=== PATIENT | female | born 1945 | race Caucasian/White ===

== ENCOUNTER → 2016-08-07 | Outpatient (CLI) | payer OTHER ==
[~2016-08-07] MED LIST: ALLOPURINOL100 MG PO; AMLODIPINE BESY10 M1 PO; AMLODIPINE BESY10 MG PO; APR50 PO; ASPIR LOW81 MG PO; CALCITRIOL0.25 MCG; CALCITRIOL0.25 MCG PO; CARVEDILOL12.5 M1 PO; CARVEDILOL6.25 M1 PO; CLINDAMYCIN HC300 MG; CLINDAMYCIN HC300 MG PO; CLOPIDOGREL75 M1 PO; CORE25 PO; ECO81 PO; ECOTRIN81 M1 PO; FAMILY PHARMAC325 MG PO; FAMOTIDINE40 MG; FERROUS SULFAT PO; FERROUS SULFAT325 M2 PO; GOOD SENSE ASPI81 M3 PO; INSULIN SQ; L40 PO; LAC PO; LEVAQUIN750 MG PO; LEVEMIR FLEX100 U/ML SQ; LEVEMIR SQ; LEVEMIR100 U/M1 SQ; LEVEMIR100 U/ML SQ; LOT5 PO; LOTENSIN10 MG PO; MUPIROCIN2% TOP; NIACIN PO; NIASPAN ER; NOR10 PO; NOVI; NOVI SQ; PLA75 PO; PRA40 PO; PRI20 PO; PROZ20 PO; SIMVASTATIN; VITAMIN C500 MG PO; VITC PO; ZOC20 PO; ZOS3PM IV; [UNRECOGNIZED DRUG - OTHER] PO
== END ==
LOC: OR 12:35
DX: T82.590A Other mechanical complication of surgically created arteriovenous fistula, initial encounter (principal)

== ENCOUNTER 2016-11-03 20:11 | Inpatient (IN) | payer OTHER ==
[~2016-11-03] VITALS: Ht 152.4 cm; Wt 78.9 kg
[2016-11-03 22:04] LABS: PLATELET COUNT 79 x10^3mcL (130-400)
--- NOTE | 2016-11-03 22:08 | NUR ---
PT IS A 71 YEAR OLD FEMALE, PRESENTS TO ED WITH C/O GENERALIZED WEAKNESS THAT STARTED TODAY. PT REPORTS THAT SHE DOESNT HAVE ENOUGH STRENGH IN LOWER EXTREMITIES TO TRANFER SELF FROM WHEELCHAIR TO COMMODE. 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 PT HAS MULTIPLE ECCHYMOSIS TO ARMS BILATERALLY AND TO CHEST AND ABDOMEN. PT DENIES ANY SHORTNESS OF BREATH OR PAIN. PT BREAHTING IS EVEN AND UNLABORED, NO S/S OF RESPRAITORY DISTRESS. SPEECH IS CLEAR AND APPROPRIATE. PT A/IO X4. PT HAS ELVIA CATH ON RIGHT CHEST AREA. PT HAS SHUNT ON RIGHT BICEP. PT REPORTS GETS DIALYSIS , , AND STAT. 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 PT DENIES ANY N/V/D/C. MSE EPRFORMED BY DR. HOWARD.
--- NOTE | 2016-11-03 22:23 | NUR ---
REMOVED PTS PROSTHETIC ATTATCHMENT BIALTERALY. ERYTHEMA NOTED TO DISTAL ENDS OF BOTH LEGS BILATERALLY, SKIN IS WARM TO TOUCH. NO OOPEN WOUNDS.
[2016-11-03 22:28] LABS: ALKALINE PHOSPHATASE 264 U/L (46-116); ALT/SGPT 22 U/L (14-59); AST/SGOT 44 U/L (15-37); BILIRUBIN TOTAL 1.64 mg/dL (0.20-1.00); CALCIUM 9.1 mg/dL (8.5-10.1); CARBON DIOXIDE 24.5 mmol/L (21-32); CHLORIDE SERUM 96 mmol/L (98-107); GLUCOSE SERUM 229 mg/dL (74-106); POTASSIUM SERUM 5.2 mmol/L (3.5-5.1); SODIUM SERUM 136 mmol/L (136-145)
[2016-11-03 22:33] LABS: ALBUMIN 2.4 g/dL (3.4-5.0); TOTAL PROTEIN, SERUM 8.4 g/dL (6.4-8.2)
[2016-11-03 22:34] LABS: CREATININE SERUM 5.7 mg/dL (0.6-1.0)
[2016-11-03 22:38] LABS: CK-MB 0.8 ng/mL (0-3.6)
--- NOTE | 2016-11-03 22:53 | NUR ---
PT STRAIGHT CATHED FOR URINE SAMPLE.
[2016-11-03 23:23] LABS: microscopic required? YES; urine erythrocyte 3+ (NEGATIVE)
--- NOTE | 2016-11-04 01:03 | NUR ---
REPORT GIVEN TO MATI SORENSEN TO ASSUME CARE OF PT
--- NOTE | 2016-11-04 01:15 | NUR ---
RECEIVED PT FROM ED VIA SHARMILA, CAME IN DUE TO SOB AND GENERALIZED WEAKNESS. AAOX4. DENIES HEADACHE/DIZZINESS. W/ VERY POOR VISION. DENIES CHEST PAIN/PRESSURE, SB W/ DEPRESSED T WAVE AND BBB. NO SOB NOTED, LUNG SOUNDS DIMINISHED, ON 2LPM/NC. DENIES ABDOMINAL DISCOMFORT. W/ SCATTERED DARK DISCOLORATION, SCRATCHES AND DRY SCABS ON BUE, BLE, BACK, CHEST AND BUTTOCKS. W/ HX OF BKA, PROSTHESIS AT BEDSIDE. SIDE RAILS UPX2. CALL LIGHT ON REACH. PRIMARY NURSE CRYSTAL TO TAKE PICTURES ON THE SKIN. ENDORSED
--- NOTE | 2016-11-04 01:30 | NUR ---
RECEIVED PT FROM ADMITTING NURSE FRANCHESCA SANFORD. PT IS RESTING IN BED AT THIS TIME WITH NO DISTRESS NOTED. RESPIRATIONS EVEN AND UNLABORED. NC @ 2LITERS IN PLACE. PT IS ALERT AND ORIENTED. NO PAIN NOTED.IV TO THE LAC PATENT. NO INFILTRATION NOTED. NS @ 10CC/HR STARTED. AV SHUNT TO THE RUE. TEMP HD CATH IN THE RIGHT CHEST, PT STATES IS NOT BEING USED. SEE BOTTOM CAGER ASSESSMENT FOR FURTHER DETAILS. WILL CONTINUE TO MONITOR PT.
[2016-11-04 01:43] VITALS: BP 108/28
[2016-11-04 02:04] LABS: CHOLESTEROL/HDL RATIO 4.1
[2016-11-04 02:09] LABS: T3 TOTAL 0.66 ng/mL
[2016-11-04 02:14] LABS: FREE T4 0.9 ng/dL (0.76-1.46); FREE THYROXINE INDEX 1.6 ug/dL (1.4-4.5); T4(THYROXINE) 4.7 ug/dL (4.7-13.3)
--- NOTE | 2016-11-04 03:30 | NUR ---
PT SLEEPING AT THIS TIME WITH NO DISTRESS NOTED. RESPIRATIONS EVEN AND UNLABORED. CALL LIGHT IN REACH. WILL MONITOR.
--- NOTE | 2016-11-04 05:16 | NUR ---
PT SLEEPING AT THIS TIME WITH NO DISTRESS NOTED. RESPIRATIONS EVEN AND UNLABORED. IV INFUSING WELL AT TKO. NO INFILTRATION NOTED. PT STABLE AT THIS TIME, WILL ENDORSE TO THE A.M SHIFT NURSE.
[2016-11-04 06:04] VITALS: BP 110/29
[2016-11-04 06:14] LABS: BASOPHIL % 0.3 % (0-2)
[2016-11-04 06:32] LABS: CHLORIDE SERUM 98 mmol/L (98-107); GLUCOSE SERUM 239 mg/dL (74-106); MAGNESIUM 2.8 mg/dL (1.8-2.4); PHOSPHOROUS 7.6 mg/dL (2.5-4.9); POTASSIUM SERUM 5.1 mmol/L (3.5-5.1); SODIUM SERUM 137 mmol/L (136-145)
--- NOTE | 2016-11-04 06:43 | NUR ---
CRITICAL LAB OF BUN 69 AND CREATINE 6. PT IS HD PATIENT AND PATIENT DUE FOR HD TODAY. WILL ENDORSE TO THE A.M SHIFT NURSE.
[2016-11-04 06:57] LABS: PLATELET COUNT 76 x10^3mcL (130-400); RED CELL DISTRIBUTION WIDTH 16.6 % (11.5-14.5)
--- NOTE | 2016-11-04 07:50 | NUR ---
PT RECEIVED DURING CHANGE OF SHIFT, A/OX4, POOR VISION IN BOTH EYES, TELE 35, SB WITH DEPRESSED T-WAVE AND BBB, DENIES CHEST PAIN, PULSES PRESENT BUE, LUNGS DIM ON RA, DENIES SOB, BREATHING EVEN AND UNLABORED, BOWEL SOUNDS ACTIVE, DENIES N/V/D, PT HAS TUNNELED CATH TO RT UPPER CHEST DRESSING CDI, AV SHUNT TO RUE BRUIT AND THRILL PRESENT, PT STATES CATH TO BE REMOVED SOON WITH WORKING AV SHUNT, RECEIVES HD TX TTHS, GENERALIZED WEAKNESS, BLE PROSTHETICS, ECCHYMOSIS BUE, ULCER TO CHEST AND BUTTOCKS, REDNESS BLE, DENIES PAIN AT THIS TIME, IV TO LAC SALINE LOCKED, IV WNL, CALM AND COOPERATIVE, CALL LIGHT WITHIN REACH, WILL CONTINUE TO MONITOR.
--- NOTE | 2016-11-04 08:55 | NUR ---
PT DENIES SOB ON RA, DENIES PAIN, PETAL SHAPER HAND AT BEDSIDE TAKING VITALS, CALL LIGHT WITHIN REACH, WILL CONTINUE TO MONITOR.
--- NOTE | 2016-11-04 09:08 | NUR ---
DR. DUNCAN AND RESIDENTS MAKING ROUNDS, PLAN OF CARE DISCUSSED.
[2016-11-04 10:01] VITALS: BP 93/33
--- NOTE | 2016-11-04 10:06 | NUR ---
PT DENIES SOB, DENIES PAIN, FINISHED 100% OF BREAKFAST, DENIES N/V AFTER EATING, CALL LIGHT WITHIN REACH, WILL CONTINUE TO MONITOR.
--- NOTE | 2016-11-04 10:07 | NUR ---
PT ASLEEP, NO INDICATION OF PAIN, BREATHING EVEN AND UNLABORED, CALL LIGHT WITHIN REACH, WILL CONTINUE TO MONITOR.
--- NOTE | 2016-11-04 10:28 | NUR ---
DIALYSIS NURSE ESTER MADE AWARE OF NEED FOR HD TX TODAY FOR THIS PT.
--- NOTE | 2016-11-04 11:07 | NUR ---
PT DENIES SOB, DENIES PAIN, BS 117 NO COVERAGE NEEDED, CALL LIGHT WITHIN REACH, WILL CONTINUE TO MONITOR.
--- NOTE | 2016-11-04 12:18 | NUR ---
PT ASLEEP, NO INDICATION OF PAIN, BREATHING EVEN AND UNLABORED, CALL LIGHT WITHIN REACH, WILL CONTINUE TO MONITOR.
--- NOTE | 2016-11-04 12:34 | NUR ---
PT REFUSED BREAKFAST THIS MORNING AND CURRENTLY REFUSING LUNCH, PT REQUESTED CEREAL, FNS NOTIFIED.
--- NOTE | 2016-11-04 13:11 | NUR ---
PT RECEIVING HD TX, NANCY SORENSEN AT BEDSIDE FOR HD TX, CALL LIGHT WITHIN REACH, WILL CONTINUE TO MONITOR.
[2016-11-04 13:18] VITALS: BP 93/29
--- NOTE | 2016-11-04 14:10 | NUR ---
PT ASLEEP, NO INDICATION OF PAIN, BREATHING EVEN AND UNLABORED, NANCY RN AT BEDSIDE DURING HD TX, CALL LIGHT WITHIN REACH, WILL CONTINUE TO MONITOR.
--- NOTE | 2016-11-04 15:18 | NUR ---
PT RECEIVING HD TX, DENIES SOB, C/O PAIN IN HIP/BUTTOCKS, PAIN MEDICATION OFFERED, PT REFUSED STATING "DIALYSIS WILL BE OVER IN 30 MINUTES, I'LL BE ABLE TO CHANGE POSITIONS, SO I'LL BE FINE."
--- NOTE | 2016-11-04 15:52 | NUR ---
HD TX FINISHED, 2L OUT.
--- NOTE | 2016-11-04 17:05 | NUR ---
PT DENIES SOB, DENIES PAIN, MEDS GIVEN, CALL LIGHT WITHIN REACH, WILL CONTINUE TO MONITOR.
[2016-11-04 17:21] VITALS: BP 106/33
--- NOTE | 2016-11-04 18:23 | NUR ---
PT ASLEEP, NO INDICATION OF PAIN, BREATHING EVEN AND UNLABORED, DAUGHTERS AT BEDSIDE, DAUGHTERS CONCERNED ABOUT PT RETURNING HOME WITH NO PERSON AVAILABLE TO TAKE CARE OF HER.
--- NOTE | 2016-11-04 19:57 | NUR ---
PT'S DAUGHTER STATED PT'S PACEMAKER SEEMS TO BE MANUFACTURED BY [employer].
[2016-11-04 21:52] VITALS: BP 102/39
--- NOTE | 2016-11-04 22:25 | NUR ---
LATE ENTRY: 2000H - EYES CLOSED, EASILY AWAKENED, ORIENTED X 4. SPEECH CLEAR AND APPROPRIATE. HOB ELEVATED 30 DEG. CALL LIGHT WITHIN EASY REACH. DAUGHTER IN ROOM. SALINE LOCK TO LEFT ARM. DRESSING OVER ELVIA CATH TO RIGHT CHEST AND DRESSING TO RIGHT UPPER ARM OVER DIALYSIS ACCESS SHUNT CDI. ABLE TO REPOSITION SELF.
[2016-11-05] VITALS (12 sets, daily range): BP systolic 83–110; BP diastolic 20–39; Ht 152.4 cm; Wt 78.9 kg
--- NOTE | 2016-11-05 00:25 | NUR ---
ATTEMPTED INTERROGATIONO OF AICD USING [employer] REMOTE INTERROGATOR. UNSUCCESSFUL. CALLING [employer] NURSE INSTRUCTOR.
--- NOTE | 2016-11-05 00:49 | NUR ---
CALLED [employer], [employer], [facility] AND [facility]. NONE STATED PT ON THEIR LIST. ATTEMPTED TO CALL [facility], NO ONE ANSWERED, CLOSED. PER DAUGHTER EARLIER, PHYSICIAN WHO PLACED AICD IS A DR. SHAY, TELEPHONE [phone]
--- NOTE | 2016-11-05 01:00 | NUR ---
EYES CLOSED, BREATHING EVEN AND UNLABORED ON ROOM. HOB KEPT ELEVATED 40 DEG. CALL LIGHT WITHIN EASY REACH. NPO.
--- NOTE | 2016-11-05 03:04 | NUR ---
Repositioned and elevated the head of the bed. Pt tolerated well.
--- NOTE | 2016-11-05 04:43 | NUR ---
Eyes close and resting comfortably. Call light within reach. Will continue to monitor.
--- NOTE | 2016-11-05 05:01 | NUR ---
BP 98/29, WA 63. ASYMPTOMATIC. INFORMED DR. SANDY VIA [facility].
--- NOTE | 2016-11-05 05:03 | NUR ---
PLACED ON AIR MATTRESS. TURNED AND REPOSITIONED. HIBICLENS BATH ADMINISTERED. LINEN AND GOWN CHANGED.
--- NOTE | 2016-11-05 06:24 | NUR ---
EYES CLOSED, EASILY AWAKENED. KEPT NPO. BREATHING EVEN AND UNLABORED ON 2LPM OF 02 VIA NC. HOB KEPT ELEVATED 30 DEG. ON AIR MATTRESS.
[2016-11-05 06:36] LABS: BASOPHIL % 0.4 % (0-2)
[2016-11-05 07:25] LABS: CALCIUM 8.8 mg/dL (8.5-10.1); CARBON DIOXIDE 31.2 mmol/L (21-32); CHLORIDE SERUM 97 mmol/L (98-107); GLUCOSE SERUM 95 mg/dL (74-106); MAGNESIUM 2.2 mg/dL (1.8-2.4); PHOSPHOROUS 5.8 mg/dL (2.5-4.9); POTASSIUM SERUM 4.1 mmol/L (3.5-5.1); SODIUM SERUM 139 mmol/L (136-145); URIC ACID 3.6 mg/dL (2.6-6.0)
[2016-11-05 07:26] LABS: PLATELET COUNT 80 x10^3mcL (130-400); RED CELL DISTRIBUTION WIDTH 16.9 % (11.5-14.5)
[2016-11-05 07:35] LABS: CREATININE SERUM 4.5 mg/dL (0.6-1.0)
--- NOTE | 2016-11-05 07:40 | NUR ---
PT AWAKE, ALERT TO PERSON, AND PLACE. TEMP 97.3. TELE #35 SINUS RHYTHM RATE 67. DENIES CHEST DISCOMFORT. AICD LEFT CHEST. [employer] WAS NOTIFED RE:INTEREGATION. THEY STATE "NEED EDGING CATCHER NEEDS TO ORDER THE TEST." DR GARCIA HERE. WILL CHECK WITH DR HAWK EDGING CATCHER IF NEEDED. AV FISTULA RIGHT ARM. PALPABLE BRUIT AND THRILL. ELVIA CATH RIGHT UPPER CHEST. SCHEDULED FOR FISTULOGRAM THIS AM. SPOKE WITH MARCEL IN PLASTER TENDER RE:PT STATUS AND PROCEDURE PLANNED. SHE WILL CONTACT DR VAZQUEZ. PT REMAINS NPO EXCEPT MEDS. ALSO SCHEDULED FOR US GUIDED THORACENTESIS PROCEDURE TODAY AT 1230. CONSENT ON CHART. RESP 18 EVEN. BREATH SOUNDS CLEAR. NO COUGH OR SOB. PULSE OX 96% ON OXYGEN 2L NC. ABD ROUNDED BUT SOFT, BOWEL TONES PRESENT HYPOACTIVE. REPORTS "[id number]. PT ON COLACE ORDERED. ESRD PT STATES "KIDNEYS ARE PARALYZED. I DO NOT URINATE." BILATERAL BELOW THE KNEE AMPUTATIONS NOTED. PROSTHESIS AT BEDSIDE. IV PATENT LFA WITH NEW ORDER FOR IVF D5NS STARTED AT 20CC/HR. SIDE RAILS UP X2. CALL LIGHT IN REACH.
--- NOTE | 2016-11-05 08:35 | NUR ---
DR DUNCAN AND MEDICAL TEAM IN ON ROUNDS. CHARGE AND PRIMARY NURSE PRESENT. REVIEWED PLAN FOR TODAY. DR GARCIA HERE. UPDATED WITH PT STATUS.
--- NOTE | 2016-11-05 09:20 | NUR ---
CALL TO SURGERY SPOKE WITH FLORES ALSTON SCHEDULE OF FISTULOGRAM. CALL TO OSIRIS IN BAND CUTTING MACHINE OPERATOR. UPDATED ON PT STATUS, MEDS GIVEN. INFORMED OF REQUEST FROM SURGERY TO CALL THEM TO REVIEW SCHEDULE.
--- NOTE | 2016-11-05 10:15 | NUR ---
SPOKE WITH CHIQUI RN IN INDUSTRIAL SEWER. REVIEWED PT STATUS AND PLAN TO JDE DEVELOPER PT AT 1130. CHQIUI STATES "SPOKE WITH DR VAZQUEZ AND IS AWARE OF MEDS PLAVIX AND ASA GIVEN THIS AM, NO PROBLEM." PT/PTT RESULTS HAVE BEEN REVIWED. PROTIME 11.7, INR=1.1, PTT=29.
--- NOTE | 2016-11-05 10:20 | NUR ---
XRAY UPDATED WITH PT STATUS, PLAN FOR OTHER PROCEDURE TODAY AT 1230 FISTULOGRAM RIGHT AV FISTULA. PROTIME/PTT RESULTS GIVEN. THEY WILL CHECK WITH RADIOLOGIST FOR TIME FOR US GUIDED THORACENTESIS.
--- NOTE | 2016-11-05 10:46 | NUR ---
DR HAWK HERE TO SEE PT AND SPEAK WITH SON. INFORMED OF [employer] REQUEST FOR MUSIC GRAPHER ORDER FOR AICD INTERRIGATION. DR LAGUERRE WITH SPEAK WITH DR GARCIA TO CONFIRM IF NEEDED. TABITHA BATH GIVEN. PT REPOSITIONED TO RIGHT SIDE WITH PILLOW SUPPORT. BILATERAL BKA STUMPS ELEVATED ON PILLOW. DENIES PAIN. REMAINS NPO. CALL LIGHT IN REACH.
--- NOTE | 2016-11-05 11:46 | NUR ---
JRY=[id number]. NO RISS COVERAGE NEEDED. ECHO IN PROGRESS AT BEDSIDE.
--- NOTE | 2016-11-05 13:05 | NUR ---
PT CUAUHT[place]OC IDENTIFIED. IV CONVERTED TO SALINE LOCK. PT TAKEN DOWN VIA BED TO PROTEIN CHEMIST BY CHIQUI SORENSEN.
--- NOTE | 2016-11-05 14:25 | NUR ---
RECEIVED PT BACK TO ROOM VIA BED. DRESSING CDI TO RIGHT FISTULA SITE AND RIGHT CHEST SITE WHEN ELVIA CATH WAS REMOVED. SMALL STAIN REDDISH DRAINAGE PRESENT. TEMP 98. HR=62. RESP 18. NA=142/26. PULSE OX 89% RA. OXYGEN 2L NC PLACED AND PULSE OX INCREASED TO 92%. REMAINS NPO FOR THORACENTESIS. IVF D5NS RESUMED AT 20CC/HR. CALL LIGHT IN REACH. REPOSITION FOR COMFORT.
--- NOTE | 2016-11-05 15:13 | NUR ---
P.T. NOTES EVAL COMPLETED - SEE NOTES (IN SEPARATE SHEET) FOR MORE INFORMATION. S:SEEN AWAKE AND ALERT, ANGUILLAN SPEAKING ELDERLY PATIENT WHO WAS JUST BROUGHT BACK TO HER ROOM AFTER A PROCEDURE. HER NURSE CLEARED HER FOR P.T. PATIENT CURRENTLY DENIES ANY PAIN AT THIS TIME. O:FUNCTIONAL MOBILITY ACTIVITIES ROLLING SIDE TO SIDE WITH MOD/MIN ASST, FROM SUPINE TO SIT AT EDGE OF BED VIA 2 PERSONS MOD ASSISTANCE, THEN SAT UP AT EDGE OF BED X 5 MINS FOR BALANCE EX WITH SOME VERBAL AND TACTILE CUES GIVEN FOR SAFETY. ATTEMPTED TO STAND USING HER BILATERAL PROSTHETIC LEG (S/P BKA SINCE 2000 PER PATIENT) BUT POLITELY DECLINED AT THIS TIME DUE TO BEING TIRED FROM AN EARLIER PROCEDURE. PATIENT WANTS TO TRY TOMORROW THOUGH SO HER REQUEST WAS RESPECTED. SHE WAS SAFELY ASSISTED BACK TO BED, REPOSITIONED COMFORTABLY WITH PILLOWS ON HER BACK THEN COVERED WITH BLANKET FOR WARMTH AND COMFORT. CALL LITE AND PHONE ARE ALL WITHIN REACH. A:TOLERATED TREATMENT WELL WITH THIS OUT OF BED ACTIVITIES VIA 2 PERSONS ASSISTANCE WITH SOME VERBAL AND TACTILE CUES GIVEN FOR SAFETY. PATIENT STATES SHE FEELS WEAK AT THIS TIME AND THAT WOULD LIKE TO TRY TO GET UP TOMORROW. PATIENT WAS ALSO REVIEWED ON SAFETY DURING MOBILITY ACTIVITIES AND SHE EXPRESSED GOOD UNDERSTANDING TO ALL INSTRUCTIONS GIVEN. P:CONTINUE P.T. PER PLAN OF CARE IF SHE REMAINS IN THIS HOSPITAL. PLAN OF CARE WAS ALSO DISCUSSED WITH THE P.T.A. [id number] [id number]', TA10', ANOTHER STAFF PRESENT ASSISTING FOR SAFETY (2PAX2) G CODES: [id number], [id number], FUNCTIONAL REACH: 15 inches
--- NOTE | 2016-11-05 15:30 | NUR ---
RIGHT SIDED THORACENTESIS DONE AT BEDSIDE BY DR ROMAN WITH ULTRASOUND GUIDED TECHNIQUE. TOTAL 1100 CC OBTAINED. SUKHDEV RN AT BEDSIDE TO ASSIST. BANDAID APPLIED. PT TOLERATED PROCEDURE WELL. TO TAKE VITAL SIGNS ORDERED. SEE VITAL SIGN LIST.
--- NOTE | 2016-11-05 17:11 | NUR ---
ORDER NOTED FROM DR GARCIA FOR FLUID BOLUS FOR HYPOTENSION NORMAL SALINE 500CC OVER ONE HOUR STARTED AT THIS TIME. BP NOW 106/36. HR=65. WILL CONTINUE TO MONITOR.
--- NOTE | 2016-11-05 17:30 | NUR ---
CX=223/38. HR=38. IVF IN PROGRESS. CALL TO DR GARCIA TO UPDATE WITH BLOOD PRESSURE AND PT STATUS. REMAINS NPO. ORDER TO HOLD BOLUS AT THIS TIME. RESUME D5NS 20CC/HR AT THIS TIME. DIALYSIS ORDERED FOR AM. RENAL DIET ORDERED FOR DINNER. BANDAID REMAINS CDI TO RIGHT BACK THORACENTESIS SITE. CALL LIGHT IN REACH.
--- NOTE | 2016-11-05 18:00 | NUR ---
CALL TO PTS PRIMARY WORKFORCE DEVELOPMENT SPECIALIST LISTED DR SHAY [phone]. EXCHANGE REPORTS DR SHAY NO LONGER WITH [facility]. DR MONACO STARCHMAKER. SPOKE WITH DR MONACO. HE WILL SPEAK WITH DR JASPAL GALVEZ AND CHECK WHEN LAST AICD INTERRIGATION WAS DONE AND CALL BACK TOMORROW.
[2016-11-05 18:23] LABS: APPEARANCE FLUID CLEAR; COLOR FLUID YELLOW; LYMPHOCYTE FLUID 16 %; MONOCYTE FLUID 12 %; RBC FLUID 172 /cumm; WBC FLUID 295 /cumm
[2016-11-05 18:26] LABS: SOURCE FLUID PLEURAL
--- NOTE | 2016-11-05 19:54 | NUR ---
RECEIVED PATIENT IN BED EATING HER DINNER WITH NO SIGN OF DISTRESS NOTED.TELE# 35, NSR WITH BBB ON MONITOR. ON O2 AT 2L VIA NC WITH DIMINISHED BS SATTING AT 97%. RT ARM FISTULA WITH GOOD BRUIT AND THRILL. PATIENT ON AIR MATTRESS . IV TO LAC INTACT AND INFUSING WELL. WILL CONTINUE TO MONITOR. CALL LIGHT WITHIN REACH.
--- NOTE | 2016-11-05 23:38 | NUR ---
SLEEPING THIS TIME BREATHING EASY AND NONLABOR. WILL CONTINUE TO MONITOR.
[2016-11-06 01:13] VITALS: BP 98/36
--- NOTE | 2016-11-06 01:16 | NUR ---
RECHECKED BP-98/36, DR SANDY MADE AWARE. PATIENT SLEEPING BREATHING EASY AND NONLABOR.
--- NOTE | 2016-11-06 05:15 | NUR ---
CHECKED AT INTERVALS FOR NEEDS AND SAFETY. DENIES PAIN AND DISCOMFORT THE ENTIRE SHIFT. ALL NEEDS ATTENDED.
[2016-11-06 05:21] VITALS: BP 86/24
[2016-11-06 06:18] LABS: BASOPHIL % 0.5 % (0-2)
[2016-11-06 06:22] LABS: CALCIUM 8.4 mg/dL (8.5-10.1); CARBON DIOXIDE 27.6 mmol/L (21-32); CHLORIDE SERUM 97 mmol/L (98-107); GLUCOSE SERUM 152 mg/dL (74-106); MAGNESIUM 2.2 mg/dL (1.8-2.4); PHOSPHOROUS 7.1 mg/dL (2.5-4.9); POTASSIUM SERUM 4.3 mmol/L (3.5-5.1); SODIUM SERUM 138 mmol/L (136-145)
[2016-11-06 06:37] LABS: RED CELL DISTRIBUTION WIDTH 16.3 % (11.5-14.5)
[2016-11-06 06:38] LABS: PLATELET COUNT 76 x10^3mcL (130-400)
[2016-11-06 06:43] LABS: CREATININE SERUM 5.5 mg/dL (0.6-1.0)
[2016-11-06 06:50] VITALS: BP 95/25
--- NOTE | 2016-11-06 07:15 | NUR ---
PT AWAKE, ABLE TO LET NEEDS KNOWN, EFFORTLESS BREATHING, ON 2LNC. NO DISTRESS AT MOMENT. IV INFUSING WELL TO LAC. PT ON AIR MATTRESS. BED IN LOWEST POSITION, CALL LIGHT WITHIN REACH.
[2016-11-06 10:05] VITALS: BP 95/44
--- NOTE | 2016-11-06 11:35 | NUR ---
DYALISIS COMPLETED 1000ML OUTPUT. VS STABLE. NO DISTRESS NOTED. PT IN FOWLERS. 101/48, HR:60, RR:14, 98.8 TEMP, 98% ON 2LNC. WILL CONTINUE TO MONITOR.
[2016-11-06 13:51] VITALS: BP 103/38
--- NOTE | 2016-11-06 14:20 | NUR ---
PT BP: 93/25 (42) HR: 63 98%ON RA. PT ASYMPTOMATIC. DENIES DIZZINESS, NAUSEA, YAN. DR. DUMONT MADE AWARE. CALL LIGHT WITHIN REACH. WILL CONTINUE TO MONITOR.
--- NOTE | 2016-11-06 15:32 | NUR ---
PHYSICAL THERAPY DAILY NOTES CO-SIGN All documentation done by the [employer] for 11/06/16 has been reviewed. I agree with the documentation. Reviewed/Co-Signed by: Candi Fitzgerald PT Documentation Done by: BROOKLYN BOWMAN OUTSIDE PHYSICAL DAMAGE APPRAISER WILL CONTINUE TO MONITOR VS
--- NOTE | 2016-11-06 16:00 | NUR ---
RECHECKED BP: 107/35 (72), 63, 16, 98%ON 2LNC. REPORTED VS TO DR. DUMONT.
--- NOTE | 2016-11-06 17:45 | NUR ---
PT IN BED. NO DISTRESS NOTED. DENIES PAIN, SOB, CP. BED IN LOWEST POSITION, CALL LIGHT WITHIN REACH.
--- NOTE | 2016-11-06 19:46 | NUR ---
RECEIVED PATIENT IN BED AWAKE, ALERT AND ORIENTED WITH NO C/O PAIN AND NO DISCOMFORT NOTED, TELE# 35,SR WITH IST DEGREE AV BLOCK ON MONITOR. ON O2 AT 2L VIA NC SATTING AT 98%, BREATHING EASY AND NONLABOR. AV FISTULA RFA WITH GOOD BRUIT AND THRILL. IV TO LAC INTACT AND INFUSING WELL. WILL CONTINUE TO MONITOR. CALL LIGHT WITHIN REACH.
--- NOTE | 2016-11-06 20:50 | NUR ---
BLOOD SUGAR CHECKED- 45 RECHECKED AFTER 5MIN BS-69, APPLE JUICE GIVEN RECHECKED AFTER 15MIN BS-74. WILL CONTINUE TO MONITOR. PATIENT AWAKE, ALERT AND ORIENTED WITH NO SIGN OF DISTRESS NOTED.
[2016-11-06 21:04] VITALS: BP 99/27
--- NOTE | 2016-11-06 21:10 | NUR ---
DR SANDY MADE AWARE OF PATIENT BLOOD PRESSURE-99/27 WITH MAP-53.
--- NOTE | 2016-11-06 21:31 | NUR ---
TELE MONITOR DISCONTINUED PT TRANFERRED TO MEDICAL SURGICAL PER MD.
--- NOTE | 2016-11-06 23:31 | NUR ---
SLEEPING WITH NO SIGN OF DISTRESS NOTED. BREATHING EASY AND NONLABOR.
[2016-11-07] VITALS (7 sets, daily range): BP systolic 90–109; BP diastolic 26–65
--- NOTE | 2016-11-07 00:25 | NUR ---
RECHECKED BLOOD SUGAR-54, DR SANDY MADE AWARE WITH NEW ORDERS AND TO CARRY OUT.
--- NOTE | 2016-11-07 00:45 | NUR ---
WITH NEW ORDERS FROM DR SANDY D1Tenisha INFUSING AT 100ML/HR. WILL CONTINUE TO MONITOR. PATIENT ASSYMPTOMATIC.
--- NOTE | 2016-11-07 03:31 | NUR ---
RECHECKED BLOOD SUGAR-65, DR SANDY MADE AWARE ORDERED ANOTHER [id number] TO INFUSED. WILL CONTINUE TO MONITOR.
[2016-11-07 06:27] LABS: CALCIUM 8.3 mg/dL (8.5-10.1); CHLORIDE SERUM 97 mmol/L (98-107); CREATININE SERUM 3.9 mg/dL (0.6-1.0); GLUCOSE SERUM 152 mg/dL (74-106); MAGNESIUM 1.9 mg/dL (1.8-2.4); PHOSPHOROUS 4.9 mg/dL (2.5-4.9); POTASSIUM SERUM 3.6 mmol/L (3.5-5.1); SODIUM SERUM 134 mmol/L (136-145)
[2016-11-07 07:05] LABS: BASOPHIL % 0.6 % (0-2)
[2016-11-07 07:07] LABS: PLATELET COUNT 81 x10^3mcL (130-400); RED CELL DISTRIBUTION WIDTH 16.7 % (11.5-14.5)
--- NOTE | 2016-11-07 08:00 | NUR ---
PT DROWSY BUT AROUSABLE. ALERT TO NAME AND . FORGETFUL TO DATE, TIME AND PLACE. TEMP 97.5. MED SURG PT. AICD LEFT UPPER CHEST. HR=62. MB=792/35. MAP=62. RESP 18 EVEN. BREATH SOUNDS DIMINISHED. NO COUGH OR SOB. PULSE OX 100% ON OXYGEN 2L NC. ABD ROUNDED AND SOMEWHAT FIRM TO PALPATION. PT REPORTS "NO POO POO FOR MANY DAYS." ON COLACE. WILL CHECK WITH DR DUMONT FOR LAXITIVE ORDER. ESRD, NO LONGER URINATES. AV FISTULA DONNA WITH PALPALBE BRUIT AND THRILL. RADIAL PULSE PRESENT. IV PATENT LAC INFUSING NORMAL SALINE 10CC/HR. SIDE RAILS UPX 2. CALL LIGHT IN REACH. ON AIR MATTRESS FOR PRESSURE RELIEF. REPOSITION FOR BREAKFAST MEAL.
--- NOTE | 2016-11-07 09:10 | NUR ---
DR DUNCAN AND MEDICAL TEAM IN ON ROUNDS. CHARGE AND PRIMARY NURSE PRESENT. DISCUSSED PLAN OF CARE. FOR PHYSICAL THERAPY TODAY. PLAN FOR SNF FOR FURTHER PHYSICAL THERAPY. PT VERBALIZED UNDERSTANDING.
--- NOTE | 2016-11-07 11:18 | NUR ---
SON HERE AT THIS TIME. PHYSICAL THERAPY ASSISTED PT OOB WITH HER PROSTHESIS. UP IN CHAIR AT THIS TIME. MED WITH LACTULOSE 30ML ORDERED FOR CONSTIPATION. CALL LIGHT IN REACH.
--- NOTE | 2016-11-07 11:33 | NUR ---
CALL TO PTS PRIMARY ORNAMENTAL IRONWORKER HELPER OFFICE DR JASPAL MONREAL OFFICE NUMBER [phone]. OFFICE LINE BUSY WILL TRY AGAIN. TO INQUIRE RE:WHEN AICD LAST WAS INTERRIGATED.
[2016-11-07] MEDS ORDERED: LEVAQUIN250 M1 PO (13:57)
--- NOTE | 2016-11-07 14:30 | NUR ---
CALL TO DR SOLIS OFFICE. REPORT OF AICD INTERRIGATION DONE ON 11-03-16 WITH NO EVENTS NOTED. PT RESTING. HAS HAD THREE INCONTINENT SOFT BROWN STOOLS. PERICARE GIVEN. REPOSITION TO SIDE WITH PILLOW SUPPORT. CALL LIGHT IN REACH.
--- NOTE | 2016-11-07 16:30 | NUR ---
OLA=[id number]. RISS COVERAGE 9 UNITS ORDERED. FRANDY SHEET METAL WORK FURNACE INSTALLER PLAN FOR TRANSFER TO [facility] TONIGHT AT 9PM PICKUP. SHE SPOKE WITH TWO DTRS AND INFORMED OF TRANSFER. DTRS IN AGREEMENT. PT UPDATED WITH PLAN FOR TRANSFER TONIGHT.
--- NOTE | 2016-11-07 17:45 | NUR ---
RISS COVERAGE 9 UNITS SQ. DENIES PAIN. IV CONVERTED TO SALINE LOCK. CALL LIGHT IN REACH.
--- NOTE | 2016-11-07 18:50 | NUR ---
REPORT CALLED TO ADELSO SORENSEN AT [facility]. CALL TO DTR BONNIE KONG AND AWARE AND ACKNOWLEGES TRANSFER TO [facility] AT 9PM. TRANSFER FORM SIGNED AND WITNESSED BY EVIE SHARMA RN. PT HAS DENTURES WITH HER AND HER EAR RINGS AND NECKLACE. PROSTHESIS AT BEDSIDE. REPORT WITH KAVEH SORENSENINFORMATION RESOURCE CONSULTANTSPINDRAW OPERATOR AT BEDSIDE.
--- NOTE | 2016-11-07 20:00 | NUR ---
RECEIVED PT FOR DISCHARGE AT [facility].ALERT AND ORIENTED X4.KYRGYZ SPEAKING ONLY.AV SHUNT TO DONNA WITH GODD BRUIT/THRILLS.BOTH BKA WITH STUMP DRY AND INTACT.ON SPECIAL MATTRESS.DENIES CHESTPAIN.BP 98/45 MMHG,HR 98.WILL CONTINUE TO MONITOR.
--- NOTE | 2016-11-07 21:40 | NUR ---
DR. SANDY MADE AWARE OF LATEST BP 90/41 MMHG.OK TO DISCHARGE PT.PT REMAINS ASYMPTOMATIC.IN NO DISTRESS.
--- NOTE | 2016-11-07 22:26 | NUR ---
FOLLOW-UP CALL MADE WITH [facility] AND SPOKE WITH ENRRIQUE.ETA 60 MINUTES.AURA FROM [facility] ALSO INFORMED
--- NOTE | 2016-11-07 23:39 | NUR ---
FOLLOW UP CALL MADE WITH [facility],SPOKE WITH ENRRIQUE.ETA 30-45 MINS.
--- NOTE | 2016-11-08 00:27 | NUR ---
PT P/U BY [facility] VIA W/C.ALL INFORMATION GIVEN TO EMT.PT AWAKE ALERT AND IN NO DISTRESS.PROSTHESIS TO BLE STUMP APPLIED.ALL BELONGINGS SENT WITH PT.WARM BLANKET GIVEN.CALLED [facility] AND MADE AWARE.
== END 2016-11-08 00:25 | DRG 252 ==
LOC: ED 20:11 → DU 11-04 00:38 → MU 11-06 21:59
PROVIDERS: Emergency Medicine; Surgery; ADMIT Family Medicine
PROC: B51MYZZ Fluoroscopy of Right Upper Extremity Veins using Other Contrast (ICD-10-PCS; 2016-11-05)
PROC: 05H733Z Insertion of Infusion Device into Right Axillary Vein, Percutaneous Approach (ICD-10-PCS; 2016-11-05)
PROC: B51MYZA Fluoroscopy of Right Upper Extremity Veins using Other Contrast, Guidance (ICD-10-PCS; 2016-11-05)
PROC: 05PYX3Z Removal of Infusion Device from Upper Vein, External Approach (ICD-10-PCS; 2016-11-05)
PROC: 037 Upper Arteries, Dilation (ICD-10-PCS; principal; 2016-11-05 12:30)
DX: I13.2 Hypertensive heart and chronic kidney disease with heart failure and with stage 5 chronic kidney disease, or end stage renal disease (principal); N18.6 End stage renal disease; I50.43 Acute on chronic combined systolic (congestive) and diastolic (congestive) heart failure; E43 Unspecified severe protein-calorie malnutrition; N17.0 Acute kidney failure with tubular necrosis; G93.41 Metabolic encephalopathy; N39.0 Urinary tract infection, site not specified; D68.69 Other thrombophilia; E87.1 Hypo-osmolality and hyponatremia; F32.9 Major depressive disorder, single episode, unspecified; E11.51 Type 2 diabetes mellitus with diabetic peripheral angiopathy without gangrene; E11.65 Type 2 diabetes mellitus with hyperglycemia; I42.0 Dilated cardiomyopathy; I70.0 Atherosclerosis of aorta; L89.322 Pressure ulcer of left buttock, stage 2; E78.5 Hyperlipidemia, unspecified; E66.9 Obesity, unspecified; K76.0 Fatty (change of) liver, not elsewhere classified; M10.9 Gout, unspecified; I27.2 Other secondary pulmonary hypertension; I25.10 Atherosclerotic heart disease of native coronary artery without angina pectoris; Z99.2 Dependence on renal dialysis; Z79.82 Long term (current) use of aspirin; Z79.4 Long term (current) use of insulin; Z68.34 Body mass index [BMI] 34.0-34.9, adult; Z95.1 Presence of aortocoronary bypass graft; Z89.512 Acquired absence of left leg below knee; Z89.511 Acquired absence of right leg below knee; Z97.16 Presence of artificial legs, bilateral (complete) (partial); Z95.810 Presence of automatic (implantable) cardiac defibrillator
CPT/HCPCS: CLAIF; 32555; 82962; 83880; 84439; 88344; 97110-GP; 97530-GP; A4719; B4164; C1769; C1876; J1644; J1815; J1956; J2001; J7030; J7040; J7042; J7050; Q0092; Q9967